=== PATIENT | female | born 1960 | race Two or more races ===

== ENCOUNTER → 2023-02-01 | Emergency (ER) | payer SELFPAY ==
[~2023-02-01] VITALS: Ht 177.8 cm; Wt 81.0 kg
[~2023-02-01] MED LIST: EPINEPHrine HCL 1 MG/10 ML SYRG ONE; SODIUM BICARBONATE 8.4 % INJ 50ML VIAL IV ONE
== END | disposition home or self-care (01) ==
LOC: ER 14:34 → EDBD 14:34 → EDSEX 14:34
DX: I46.9 Cardiac arrest, cause unspecified (principal); I10 Essential (primary) hypertension
CPT/HCPCS: 31500; 92950; 99285; J0171